=== PATIENT | male | born 1945 | race Caucasian/White ===

== ENCOUNTER → 2018-07-01 | Outpatient (CLI) | payer OTHER ==
[2018-07-01] MEDS: REGADENOSON 0.4 MG/5 ML PF SYG IVP SCH (10:31)
== END | disposition home or self-care (01) ==
LOC: SHCH 08:00
PROVIDERS: ATTEND Internal Medicine Cardiovascular Disease
DX: I25.10 Atherosclerotic heart disease of native coronary artery without angina pectoris (principal)
CPT/HCPCS: 78452; 93017; 96374; A9500 ×2; J2785

== ENCOUNTER 2019-03-10 07:05 | Day surgery (SDC) | payer OTHER ==
[~2019-03-10] VITALS: Ht 172.7 cm; Wt 78.0 kg
[~2019-03-10 07:05] MED LIST: APIX5TAB PO; ASCO10007 PO; ATOR-2 PO; DIGO250T84 PO; ERGO400T7 PO; METF-444 PO; METO-409 PO; OMEG100014 PO; VITAMIN B12 PO
[2019-03-10 07:09] VITALS: BP 133/108
[2019-03-10 08:26] VITALS: BP 170/104
[2019-03-10] MEDS ORDERED: GLYCOPYRROLATE 0.2 MG/ML 5 ML VIAL ONE (08:29)
[2019-03-10] MEDS ORDERED: PROPOFOL 10 MG/ML 20ML VIAL IV ONE (08:29)
[2019-03-10] MEDS ORDERED: LIDOCAINE HCL 1% 20 ML VIAL ONE (08:30)
[2019-03-10] MEDS ORDERED: SODIUM CHLORIDE 0.9% 1000ML 1,000 ML IV ONE (08:53)
[2019-03-10 09:07] VITALS: BP 133/108
[2019-03-10 09:12] VITALS: BP 159/93
[2019-03-10 09:17] VITALS: BP 153/78
[2019-03-10 09:21] VITALS: BP 164/93
--- NOTE | 2019-03-10 10:37 | NUR ---
PT WAITING FOR FAMILY TO PICK HIM UP. PT LEFT VIA WHEELCHAIR IN PVT CAR WITH FAMILY FRIEND. RX SCRIPT GIVEN TO FAMILY FRIEND WITH F/U APPT AND D/C INSTRUCTIONS. PT. LEFT WITH NO COMPLICATION.
== END 2019-03-10 10:37 | disposition home or self-care (01) ==
LOC: ENDO 07:05 → DAH 07:05 → ENDO 10:37
PROVIDERS: ATTEND Internal Medicine Gastroenterology
DX: K22.2 Esophageal obstruction (principal); K29.50 Unspecified chronic gastritis without bleeding; K21.0 Gastro-esophageal reflux disease with esophagitis; K29.70 Gastritis, unspecified, without bleeding; K44.9 Diaphragmatic hernia without obstruction or gangrene; I25.10 Atherosclerotic heart disease of native coronary artery without angina pectoris; Z79.84 Long term (current) use of oral hypoglycemic drugs; Z79.899 Other long term (current) drug therapy; E78.5 Hyperlipidemia, unspecified; I10 Essential (primary) hypertension; E11.40 Type 2 diabetes mellitus with diabetic neuropathy, unspecified; Z85.828 Personal history of other malignant neoplasm of skin; Z79.82 Long term (current) use of aspirin
CPT/HCPCS: 43239; 43249; 82948 ×2; 88305; 93005; A4215; A4221; A4222; A4223; A4606; A4620; A4663; J2704; J3490; J7030